=== PATIENT | female | born 1965 | race Caucasian/White ===

== ENCOUNTER 2020-05-18 18:27 | Emergency (ER) | payer OTHER, BC ==
[~2020-05-18] VITALS: Ht 175.3 cm; Wt 67.6 kg
[~2020-05-18 18:27] MED LIST: ATIVAN1 MG PO; CHANTIX1 MG PO; PERCOCET 5-3251 EACH PO; PROZAC10 MG PO
[2020-05-18] MEDS ORDERED: HYDROCODON-ACE1 EA10 PO (20:22)
[2020-05-18] MEDS ORDERED: COL-RITE250 MG PO (20:22)
== END 2020-05-18 21:41 | disposition home or self-care (01) ==
LOC: ED 18:27
DX: S52.571A Other intraarticular fracture of lower end of right radius, initial encounter for closed fracture (principal); W01.198A Fall on same level from slipping, tripping and stumbling with subsequent striking against other object, initial encounter; F17.200 Nicotine dependence, unspecified, uncomplicated
CPT/HCPCS: 29125; 73110; 90471; 90714; 99283-25

== ENCOUNTER 2021-06-03 08:01 | Day surgery (SDC) | payer BC, OTHER ==
[~2021-06-03] VITALS: Ht 175.3 cm; Wt 68.2 kg
[~2021-06-03 08:01] MED LIST changes: +COL-RITE250 MG PO; +HYDROCODON-ACE1 EA10 PO
[2021-06-03] MEDS ORDERED: HYDROCODON-ACE1 EA10 PO (10:14)
--- NOTE | 2021-06-03 10:24 | NUR ---
06/03/21 Nelida Nagy 1019- PT ARRIVES TO PACU NONAROUSABLE TO STIMULI. PT SNORING. JAW LIFT DONE AND SNORING STOPS. RESP EVEN AND UNLABORED. OXYGEN SAT HIGH 90'S TO 100% ON 6L VIA MASK. 1020- PT'S HEAD REPOSITIONED AND PT MOVES HER HEAD. PT DOES NOT FOLLOW COMMANDS AT THIS TIME AND INSTANTLY FALLS BACK TO SLEEP. ICE PACK PLACED TO PT'S RIGHT WRIST.
--- NOTE | 2021-06-04 09:49 | OR ---
[facility] [address] [place], [place] [address] Signed DATE OF OPERATION: 06/03/2021 SURGEON: Jovan Alcazar MD PREOPERATIVE DIAGNOSIS: Carpal tunnel syndrome, right. POSTOPERATIVE DIAGNOSIS: Carpal tunnel syndrome, right. PROCEDURE PERFORMED: Carpal tunnel release, right. PHOTOSTAT OPERATOR HELPER: None. ANESTHESIA: Rhys block. TOURNIQUET TIME: 20 minutes. BRIEF HISTORY: Cherri is a 56-year-old female with progressing pain and numbness in her hand. Nerve conduction studies confirmed carpal tunnel. Risks and benefits of operative treatment were discussed with her and she elected to proceed. PROCEDURE IN DETAIL: Once consent was obtained she was taken to the operating room. After adequate anesthesia, she was placed in the hand table. The arm was prepped and draped in a standard sterile fashion. A 1.5 cm incision was made in the distal wrist crease carried through skin and subcutaneous tissue. Palmaris longus was identified, retracted and protected. Bleeders were cauterized as we went. The transverse carpal ligament was identified under loupe magnification, was dissected free of overlying soft tissue proximally and distally. It was then released proximally a cm and distally under direct loupe magnification. It was released to the distal extent. This was then palpated using the [place] elevator and found to be completely released. The wound was copiously irrigated with normal saline, closed with 3-0 nylon and injected with 9 mL 0.25% Marcaine plain. The wound was dressed with bacitracin, Adaptic, 4 x 8s, and gauze. She Electronically Signed By: JOVAN ALCAZAR MD 06/04/21 0949 PATIENT NAME: CHERRI KIRBY OPERATIVE REPORT DATE OF : 61 REPORT #: [id number] PHYSICIAN: JOVAN ALCAZAR MD PCP: NO PRIMARY CARE PHYSICIAN REPORT IS CONFIDENTIAL AND NOT TO BE RELEASED WITHOUT AUTHORIZATION [facility] [address] [facility] [place] [address] Signed tolerated the procedure well. All sponge, needle, and instrument counts were correct. Jovan Alcazar MD BA/MODL /[id number] Copies: ~ Electronically Signed By: OJVAN ALCAZAR MD 06/04/21 0949 PATIENT NAME: CHERRI KIRBY OPERATIVE REPORT DATE OF : 61 REPORT #: [id number] PHYSICIAN: JOVAN ALCAZAR MD PCP: NO PRIMARY CARE PHYSICIAN REPORT IS CONFIDENTIAL AND NOT TO BE RELEASED WITHOUT AUTHORIZATION
== END 2021-06-03 11:03 | disposition home or self-care (01) ==
LOC: DS 08:01
PROVIDERS: ATTEND Specialist
PROC: 01N50ZZ Release Median Nerve, Open Approach (ICD-10-PCS; principal; 2021-06-03 10:05)
DX: G56.01 Carpal tunnel syndrome, right upper limb (principal)
CPT/HCPCS: J0690; J2704; J7121